=== PATIENT | female | born 1950 | race Caucasian/White ===

== ENCOUNTER 2023-08-28 08:12 | Emergency (ER) | payer OTHER, SELFPAY ==
[2023-08-28] VITALS (18 sets, daily range): BP systolic 115–147; BP diastolic 54–73; PULSE 56–81; RESP 13–30; TEMP 36.4; O2SAT 96–100; BMI 24.1
--- NOTE | 2023-08-28 08:18 | DI.CT.S_ITS ---
PROCEDURE: CT ANGIO CHEST ABDOMEN PELVIS INDICATIONS: abd pain, snycope TECHNIQUE: Precontrast 5 mm thick sections acquired from the lung apices to the iliac crests. After the administration of intravenous contrast, 2.5 mm thick sections again acquired from the lung apices to the iliac crests. Maximum intensity projection (MIP) oblique sagittal and coronal reformats were then acquired. For radiation dose reduction, the following was used: automated exposure control. COMPARISON: None. FINDINGS: Image quality: Diagnostic. AORTA: No aortic aneurysm. No acute aortic syndrome. CHEST: Lower Neck: No enlarged lymph nodes. Thyroid: No thyroid nodules which require sonographic evaluation. Axillae: No enlarged lymph nodes. Chest Wall: Unremarkable. Lungs and Pleura: No pneumothorax or pleural effusions. Biapical pleuroparenchymal scarring. No consolidation or suspicious nodules. Heart: Heart size is normal. No pericardial effusion. Thoracic Vessels: Pulmonary arteries demonstrate normal size. Mediastinum and Ann: No enlarged lymph nodes. Esophagus: No wall thickening. No hiatal hernia. ABDOMEN: Liver: No solid mass. Gallbladder: No radiopaque gallstones or wall thickening. Biliary ducts: No biliary dilation. Pancreas: No ductal dilation. Spleen: Size is within normal limits. Adrenal Glands: No adrenal nodules. Kidneys and Ureters: No hydronephrosis. No solid mass. No complex renal cystic lesion which requires follow up. Stomach and Bowel: Normal colonic caliber, without significant wall thickening. Diverticulosis without evidence of acute diverticulitis. Normal appendix. Peritoneum: No abnormal intraperitoneal fluid. No free air. Ventral Wall: No hernia. Abdominal Nodes: No retroperitoneal or mesenteric adenopathy by size criteria. Vessels: Inferior vena cava is normal in size. PELVIS: Pelvic Organs: Unremarkable. Bladder: Unremarkable. Pelvic Nodes: No enlarged lymph nodes. Miscellaneous: No inguinal hernias are seen. Bones: Degenerative changes of the spine. No compression deformities. IMPRESSION: 1. No evidence of acute aortic syndrome. 2. No acute findings within the chest, abdomen pelvis. 3. Diverticulosis without evidence of acute diverticulitis. Dictated by: Roger Jiménez M.D. on 08/28/2023 at 9:19 Approved by: Roger Jiménez M.D. on 08/28/2023 at 9:26
--- NOTE | 2023-08-28 08:20 | ED.SYNCOPE ---
HPI - Syncope General Chief Complaint: Syncope Stated Complaint: Syncope Time Seen by Provider: 08/28/23 08:18 History of Present Illness HPI narrative: Rapid response was called overhead, I did respond to the walk-in clinic room 5. I spoke with Madelin, provider taking care of patient. Patient during history taking regarding her fall yesterday for the right wrist pain and swelling, patient had 3 episodes of complete syncope. With urinary incontinence. Episodes less than 30 seconds each. No seizure activity. at bedside. No prior history of heart attack strokes diabetes or arrhythmia or seizures. Patient is awake alert and he is immediately responsive and oriented to environment and . EMS did arrive. Blood sugar 186. They did transfer patient here to the emergency department, fentanyl 50 mcg given as well as ketamine. Zofran given as well. Patient denies any allergy. Patient is very anxious. He is coming here shortly. Wrist splint applied by EMS. She does complain of generalized abdominal pain. Does not radiate. No prior history of aortic aneurysm or dissection. Patient and are visiting from [place]. She was on a hiking trail yesterday lost her footing and fell and posted out her right hand and wrist. Denies any other pain or injury. Again, and patient desire any history of heart attack strokes diabetes arrhythmia blood clots in legs or lungs or aortic disease. Patient had gone off the trail to go use the bathroom and when she got up the ground gave way and she tried to catch herself from falling and injured her right wrist. No prior history of vasovagal syncope. Related Data Home Medications Medication Instructions Recorded Confirmed No Known Home Medications 08/28/23 08/28/23 Allergies Allergy/AdvReac Type Severity Reaction Status Date / Time No Known Drug Allergies Allergy Unverified 08/28/23 07:26 Review of Systems Review of Systems Narrative: GENERAL: negative chills, fatigue, malaise, fever, sweats. HEENT: negative sinus pain, ear pain, sore throat RESPIRATORY: negative dyspnea, cough CARDIOVASCULAR: negative chest pain, palpitations, positive syncope GASTROINTESTINAL: Positive nausea, vomiting, abdominal pain : negative dysuria, frequency, hematuria MUSCULOSKELETAL: Positive muscle or bony pain SKIN: negative rash, skin lesions NEUROLOGIC: negative weakness, numbness, negative seizure PSYCH: Positive anxious ROS Unobtainable: All systems reviewed & are unremarkable except as noted in HPI and below Patient History Social History Smoking Status: Never smoker Exam Narrative Exam Narrative: GENERAL: in no distress, not toxic not dyspneic HEAD: Normocephalic. EYES: Pupils equal round ENT: Mucous membranes moist. NECK: Trachea midline. CARDIOVASCULAR: Regular rate and rhythm RESPIRATORY: Clear to auscultation. Breath sounds equal bilaterally. No wheezes, rales, or rhonchi. GASTROINTESTINAL: Abdomen soft, non-tender EXTREMITIES: Examination right upper extremity. Nontender right shoulder elbow. There is tenderness and bruising and swelling to the right wrist with limited range of motion. Hand otherwise warm soft and pink with light touch intact to thumb and fingers. Strong radial pulse brisk cap refills BACK: No flank tenderness. NEURO: AOx4. Clear speech no facial droop fast exam is negative. SKIN: Warm and dry PSYCH: Is anxious, is cooperative Initial Vital Signs Initial Vital Signs: Vital Signs Pulse Rate 59 L 08/28/23 08:34 Respiratory Rate 30 H 08/28/23 08:34 Pulse Oximetry 99 08/28/23 08:34 Procedures Orthopedic Splinting/Casting Injury #1: Time of procedure: 09:57 Side: right Upper Extremity Injury Location: wrist Upper Extremity Immobilizer: sugar tong splint Post splinting neuro exam: intact Post splinting vascular exam: intact Placed by: Nursing Course Orders Ordered: Discontinued Medications Sodium Chloride (Normal Saline 0.9%) 500 mls @ 1,000 mls/hr IV BOLUS ONE Stop: 08/28/23 09:26 Last Infusion: 08/28/23 09:44 Dose: Infused Documented By: Admin: 08/28/23 09:00 Dose: 1,000 mls/hr Documented By: PARAMJIT Metoclopramide HCl (Metoclopramide 10 Mg/2 Ml Inj) 10 mg IV NOW ONE Stop: 08/28/23 08:27 Last Admin: 08/28/23 08:52 Dose: 10 mg Documented By: LOUISA Vital Signs Vital signs: Vital Signs - 8 hr 08/28/23 08:34 08/28/23 08:35 08/28/23 08:35 Temperature Pulse Rate 59 L 56 L Pulse Rate [Orthostatic Lying] Pulse Rate [Orthostatic Sitting] Pulse Rate [Orthostatic Standing] Respiratory Rate 30 H 29 H Blood Pressure 115/54 L Blood Pressure [Orthostatic Lying] Blood Pressure [Orthostatic Sitting] Blood Pressure [Orthostatic Standing] Pulse Oximetry 99 100 Oxygen Delivery Method 08/28/23 08:36 08/28/23 09:09 08/28/23 09:30 Temperature 97.5 F L Pulse Rate 56 L 77 69 Pulse Rate [Orthostatic Lying] Pulse Rate [Orthostatic Sitting] Pulse Rate [Orthostatic Standing] Respiratory Rate 16 30 H 14 Blood Pressure 115/54 L Blood Pressure [Orthostatic Lying] Blood Pressure [Orthostatic Sitting] Blood Pressure [Orthostatic Standing] Pulse Oximetry 100 98 98 Oxygen Delivery Method Room Air 08/28/23 09:45 08/28/23 09:45 08/28/23 10:00 Temperature Pulse Rate 70 71 Pulse Rate [Orthostatic Lying] Pulse Rate [Orthostatic Sitting] Pulse Rate [Orthostatic Standing] Respiratory Rate 21 13 Blood Pressure 147/65 H Blood Pressure [Orthostatic Lying] Blood Pressure [Orthostatic Sitting] Blood Pressure [Orthostatic Standing] Pulse Oximetry 97 100 Oxygen Delivery Method 08/28/23 10:00 08/28/23 10:22 08/28/23 10:22 Temperature Pulse Rate 76 Pulse Rate [Orthostatic Lying] Pulse Rate [Orthostatic Sitting] Pulse Rate [Orthostatic Standing] Respiratory Rate 15 Blood Pressure 133/57 L 144/63 H Blood Pressure [Orthostatic Lying] Blood Pressure [Orthostatic Sitting] Blood Pressure [Orthostatic Standing] Pulse Oximetry 99 Oxygen Delivery Method 08/28/23 10:25 08/28/23 10:25 08/28/23 10:26 Temperature Pulse Rate 75 81 Pulse Rate [Orthostatic Lying] Pulse Rate [Orthostatic Sitting] Pulse Rate [Orthostatic Standing] Respiratory Rate 25 H 20 Blood Pressure 144/65 H Blood Pressure [Orthostatic Lying] Blood Pressure [Orthostatic Sitting] Blood Pressure [Orthostatic Standing] Pulse Oximetry 99 99 Oxygen Delivery Method 08/28/23 10:26 08/28/23 10:29 08/28/23 10:30 Temperature Pulse Rate 71 Pulse Rate [Orthostatic Lying] 78 Pulse Rate [Orthostatic Sitting] 77 Pulse Rate [Orthostatic Standing] 81 Respiratory Rate 18 Blood Pressure 133/68 Blood Pressure [Orthostatic Lying] 144/63 H Blood Pressure [Orthostatic Sitting] 144/65 H Blood Pressure [Orthostatic Standing] 133/68 Pulse Oximetry 98 Oxygen Delivery Method 08/28/23 10:31 08/28/23 10:31 08/28/23 11:00 Temperature Pulse Rate 71 65 Pulse Rate [Orthostatic Lying] Pulse Rate [Orthostatic Sitting] Pulse Rate [Orthostatic Standing] Respiratory Rate 15 Blood Pressure 145/67 H Blood Pressure [Orthostatic Lying] Blood Pressure [Orthostatic Sitting] Blood Pressure [Orthostatic Standing] Pulse Oximetry 99 98 Oxygen Delivery Method 08/28/23 11:00 08/28/23 11:30 08/28/23 11:30 Temperature Pulse Rate 62 Pulse Rate [Orthostatic Lying] Pulse Rate [Orthostatic Sitting] Pulse Rate [Orthostatic Standing] Respiratory Rate 13 Blood Pressure 132/64 129/62 Blood Pressure [Orthostatic Lying] Blood Pressure [Orthostatic Sitting] Blood Pressure [Orthostatic Standing] Pulse Oximetry 96 Oxygen Delivery Method 08/28/23 11:40 08/28/23 12:00 08/28/23 12:00 Temperature Pulse Rate 66 68 Pulse Rate [Orthostatic Lying] Pulse Rate [Orthostatic Sitting] Pulse Rate [Orthostatic Standing] Respiratory Rate 18 Blood Pressure 132/63 131/68 Blood Pressure [Orthostatic Lying] Blood Pressure [Orthostatic Sitting] Blood Pressure [Orthostatic Standing] Pulse Oximetry 96 97 Oxygen Delivery Method Room Air MDM - Syncope Lab Data 08/28/23 09:26 08/28/23 09:26 Labs: Lab Results 08/28/23 Range/Units 09:26 WBC 11.1 H (4.5-11.0) X10^3/uL RBC 3.93 L (4.0-5.2) X10^6/uL Hgb 12.4 (12.0-16.0) g/dL Hct 35.9 L (36-46) % MCV 91.3 (80-100) fL MCH 31.6 (26-34) PG MCHC 34.6 (30-36) % RDW 12.6 (11.6-14.8) % Plt Count 144 L (150-400) X10^3/uL Neut % (Auto) 75.9 H (50-75) % Lymph % (Auto) 12.2 L (25-40) % Traill % (Auto) 11.0 (3-14) % Eos % (Auto) 0.5 L (2-4) % Baso % (Auto) 0.4 (0-2) % Neut # (Auto) 8400 H (9703-0670) /uL Lymph # (Auto) 1400 (1858-7178) /uL [place] # (Auto) 1200 H (0-900) /uL Eos # (Auto) 100 (0-450) /uL Baso # (Auto) 0 (0-100) /uL Sodium 137 (137-145) mmol/L Potassium 3.8 (3.4-5.1) mmol/L Chloride 109 H (98-107) mmol/L Carbon Dioxide 21 L (22-32) mmol/L BUN 16 (7-17) mg/dL Creatinine 0.65 (0.52-1.04) mg/dL Estimated GFR > 60 (>60) mL/min BUN/Creatinine Ratio 24.6 H (6-22) Glucose 153 H (80-110) mg/dL Calcium 8.5 (8.4-10.2) mg/dL Total Bilirubin 0.9 (0.2-1.3) mg/dL AST 22 (14-36) IU/L ALT 18 (<35) IU/L Alkaline Phosphatase 86 (38-126) U/L Total Creatine Kinase 63 (30-135) U/L Troponin I < 0.012 (0.01-0.034) ng/mL Total Protein 5.9 L (6.3-8.2) g/dL Albumin 3.4 L (3.5-5.0) g/dL Globulin 2.5 (1.7-4.1) g/dL Albumin/Globulin Ratio 1.4 (1.0-2.8) Lipase 68 (23-300) U/L Imaging Data CT angio chest abdomen pelvis: Radiologist's Impression: [address] [address] [address] Scan Report Signed Patient: Lesvia Lutz MR#: [id number] : 1950 Acct:[id number] Age/Sex: 72 / F Date of Service: 08/28/23 Loc: ED Accession Number: [id number] Procedure: CT angio chest abdomen pelvis Ordering Provider: Thom Rodríguez MD PROCEDURE: CT ANGIO CHEST ABDOMEN PELVIS INDICATIONS: abd pain, snycope TECHNIQUE: Precontrast 5 mm thick sections acquired from the lung apices to the iliac crests. After the administration of intravenous contrast, 2.5 mm thick sections again acquired from the lung apices to the iliac crests. Maximum intensity projection (MIP) oblique sagittal and coronal reformats were then acquired. For radiation dose reduction, the following was used: automated exposure control. COMPARISON: None. FINDINGS: Image quality: Diagnostic. AORTA: No aortic aneurysm. No acute aortic syndrome. CHEST: Lower Neck: No enlarged lymph nodes. Thyroid: No thyroid nodules which require sonographic evaluation. Axillae: No enlarged lymph nodes. Chest Wall: Unremarkable. Lungs and Pleura: No pneumothorax or pleural effusions. Biapical pleuroparenchymal scarring. No consolidation or suspicious nodules. Heart: Heart size is normal. No pericardial effusion. Thoracic Vessels: Pulmonary arteries demonstrate normal size. Mediastinum and Ann: No enlarged lymph nodes. Esophagus: No wall thickening. No hiatal hernia. ABDOMEN: Liver: No solid mass. Gallbladder: No radiopaque gallstones or wall thickening. Biliary ducts: No biliary dilation. Pancreas: No ductal dilation. Spleen: Size is within normal limits. Adrenal Glands: No adrenal nodules. Kidneys and Ureters: No hydronephrosis. No solid mass. No complex renal cystic lesion which requires follow up. Stomach and Bowel: Normal colonic caliber, without significant wall thickening. Diverticulosis without evidence of acute diverticulitis. Normal appendix. Peritoneum: No abnormal intraperitoneal fluid. No free air. Ventral Wall: No hernia. Abdominal Nodes: No retroperitoneal or mesenteric adenopathy by size criteria. Vessels: Inferior vena cava is normal in size. PELVIS: Pelvic Organs: Unremarkable. Bladder: Unremarkable. Pelvic Nodes: No enlarged lymph nodes. Miscellaneous: No inguinal hernias are seen. Bones: Degenerative changes of the spine. No compression deformities. IMPRESSION: 1. No evidence of acute aortic syndrome. 2. No acute findings within the chest, abdomen pelvis. 3. Diverticulosis without evidence of acute diverticulitis. Dictated by: Roger Jiménez M.D. on 08/28/2023 at 9:19 Approved by: Roger Jiménez M.D. on 08/28/2023 at 9:26 Extremity x-ray #1: Radiologist's Impression: [address] [address] XRay Report Signed Patient: Lesvia Lutz MR#: [id number] : 1950 Acct:[id number] Age/Sex: 72 / F Date of Service: 08/28/23 Loc: ED Accession Number: [id number] Procedure: XR wrist RT 2V Ordering Provider: Thom Rodríguez MD PROCEDURE: XR WRIST RT 2V INDICATIONS: pain/fall TECHNIQUE: 2 views of the wrist were acquired. COMPARISON: None. FINDINGS: Bones: Mildly displaced fracture of the radial styloid with intra-articular extension. Possible nondisplaced ulnar styloid fracture. No suspicious osseous lesions. Soft tissues: No suspicious soft tissue calcifications. IMPRESSION: Mildly displaced fracture of the radial styloid with intra-articular extension. Possible nondisplaced ulnar styloid fracture. Dictated by: Roger Jiménez M.D. on 08/28/2023 at 9:11 Approved by: Roger Jiménez M.D. on 08/28/2023 at 9:13 MDM Narrative Medical decision making narrative: Rapid response was called overhead, I did respond to the walk-in clinic room 5. I spoke with Madelin, provider taking care of patient. Patient during history taking regarding her fall yesterday for the right wrist pain and swelling, patient had 3 episodes of complete syncope. With urinary incontinence. Episodes less than 30 seconds each. No seizure activity. at bedside. No prior history of heart attack strokes diabetes or arrhythmia or seizures. Patient is awake alert and he is immediately responsive and oriented to environment and . EMS did arrive. Blood sugar 186. They did transfer patient here to the emergency department, fentanyl 50 mcg given as well as ketamine. Zofran given as well. Patient denies any allergy. Patient is very anxious. He is coming here shortly. Wrist splint applied by EMS. She does complain of generalized abdominal pain. Does not radiate. No prior history of aortic aneurysm or dissection. Patient and are visiting from [place]. She was on a hiking trail yesterday lost her footing and fell and posted out her right hand and wrist. Denies any other pain or injury. Again, and patient desire any history of heart attack strokes diabetes arrhythmia blood clots in legs or lungs or aortic disease. Patient had gone off the trail to go use the bathroom and when she got up the ground gave way and she tried to catch herself from falling and injured her right wrist. No prior history of vasovagal syncope. After history and exam CT head CT angiogram chest abdomen pelvis EKG normal saline CBC CMP troponin urinalysis, x-ray right wrist MDM Medical records reviewed: No recent visit for this complaint Differential considered: Includes but not limited to aortic dissection vasovagal syncope pulmonary embolism SC stroke arrhythmia, wrist fracture/dislocation/sprain Lab Test results independently reviewed as above. Pertinent findings: Independently reviewed EKG sinus bradycardia rate [address] elevation or depression Imaging studies independently reviewed: CT chest abdomen pelvis no acute finding x-ray right wrist distal radial fracture and ulnar styloid fracture Consultations: 9:56 a.m.. Staff spoke with Dr. Nash, orthopedics, she will follow up after getting out of operating room Treatments: Splint Re-evaluations: Updated patient and results. They do agree for admission. Pain is controlled. Further workup/observation for the syncopal episode 12:39 p.m.. I have spoken with patient, and son are at bedside. Patient refuses to be admitted. She states she gets anxious and has passed out before. I informed her this symptoms presented and my evaluation are concerning. I implored with her to stay. She is awake alert oriented x4. No altered mental status. and son are at bedside, they have not said anything to me about decision making. However I did leave the room and the 3 of them discussed the decision and when I return patient still does not want to be admitted. Risk of leaving against medical advice and benefits of staying reviewed with patient. Risk include but not limited to heart attack stroke permanent injury loss of limb or organ or tissue or permanent injury or worsening symptoms reviewed with her. She desires discharge. They will inform their family doctor of the injury and event and will see the primary care and get referral for orthopedic when they return to [place] next week Discussion: Patient has decided to leave against medical advice Diagnosis: Syncope/wrist fracture Discharge Plan Departure Patient Disposition: Left Against Medical Advice Clinical Impression: Syncope and collapse, Left against medical advice Fracture of wrist, closed Qualifiers: Encounter type: initial encounter Laterality: right Qualified Code(s): S62.101A - Fracture of unspecified carpal bone, right wrist, initial encounter for closed fracture Instructions: Refusal of Consent to Treatment (Against Medical Advice) Activity Restrictions/Additional Instructions: Return immediately if you change your mind to be admitted Prescriptions: No Action No Known Home Medications Referrals: Miscellaneous,Doctor, MD [Primary Care Provider] - Stand Alone Forms: Patient Portal/API, Against Medical Advice
[2023-08-28] MEDS: METOCLOPRAMIDE 10 MG/2 ML INJ IV (08:52)
[2023-08-28] MEDS: SODIUM CHLORIDE 0.9% 500 ML 1000 ML IV (09:00)
--- NOTE | 2023-08-28 09:16 | PC.NURSE ---
This Tech assisted patient with taking yellow ring off. Ring given to Mike, patient's spouse.
[2023-08-28 09:36] LABS: Add Manual Diff / Slide Review NO; Basophils Absolute Auto 0 /uL (0-100); Basophils Percent Auto 0.4 % (0-2); Eosinophils Absolute Auto 100 /uL (0-450); Eosinophils Percent Auto 0.5 % (2-4); Hematocrit 35.9 % (36-46); Hemoglobin 12.4 g/dL (12.0-16.0); Lymphocytes Absolute Auto 1400 /uL (1100-4500); Lymphocytes Percent Auto 12.2 % (25-40); Mean Corpuscular HGB Conc 34.6 % (30-36); Mean Corpuscular Hemoglobin 31.6 PG (26-34); Mean Corpuscular Volume 91.3 fL (80-100); Monocytes Absolute Auto 1200 /uL (0-900); Neutrophils Absolute Auto 8400 /uL (1500-7000); Neutrophils Percent Auto 75.9 % (50-75); Platelet Count 144 X10^3/uL (150-400); Red Blood Cell Count 3.93 X10^6/uL (4.0-5.2); Red Cell Distribution Width 12.6 % (11.6-14.8); White Blood Cell Count 11.1 X10^3/uL (4.5-11.0)
[2023-08-28 09:49] LABS: Alanine Aminotransferase 18 IU/L (<35); Albumin 3.4 g/dL (3.5-5.0); Albumin Globulin Ratio 1.4 (1.0-2.8); Alkaline Phosphatase 86 U/L (38-126); Aspartate Aminotransferase 22 IU/L (14-36); BUN Creatinine Ratio 24.6 (6-22); Bilirubin Total 0.9 mg/dL (0.2-1.3); Blood Urea Nitrogen 16 mg/dL (7-17); Calcium 8.5 mg/dL (8.4-10.2); Carbon Dioxide 21 mmol/L (22-32); Chloride 109 mmol/L (98-107); Creatine Kinase 63 U/L (30-135); Estimated Glomerular Filt Rate > 60 mL/min (>60); Globulin 2.5 g/dL (1.7-4.1); Glucose 153 mg/dL (80-110); HEMOLYSIS < 15 (0-50); Lipase 68 U/L (23-300); Potassium 3.8 mmol/L (3.4-5.1); Sodium 137 mmol/L (137-145); Total Protein 5.9 g/dL (6.3-8.2)
[2023-08-28 09:59] LABS: Troponin I < 0.012 ng/mL (0.01-0.034)
--- NOTE | 2023-08-28 10:18 | PM.CALLCOV.1 ---
Call Coverage Note Note Date of Patient Contact: 08/28/23 Time of Patient Contact: 10:19 Narrative of Care Provided: 72 F called for admission for syncope. History sounds very reassuring for vasovagal etiology. Recommend rehydration, check orthostatics. Wrist fracture is outpatient follow up. She has no concerning cardiac history. Unfortunately ER consultation will need to be delayed for urgent issues on the hospital floor. Will provide full consultation or admission note to follow depending on my evaluation.
== END 2023-08-28 12:40 | disposition left against medical advice (07) ==
PROVIDERS: Emergency Provider Emergency Medicine
DX: R55 Syncope and collapse (principal); S62.101A Fracture of unspecified carpal bone, right wrist, initial encounter for closed fracture; R10.84 Generalized abdominal pain; R11.2 Nausea with vomiting, unspecified
CPT/HCPCS: 29105; 36415; 71275; 73100; 74174; 80053; 82550; 83690; 84484; 85025; 93005; 96361; 96374; 99284; J2765; Q9967